=== PATIENT | female | born 1995 | race African-American/Black ===

== ENCOUNTER 2019-07-13 12:46 | Emergency (ER) | payer OTHER, SELFPAY ==
[2019-07-13 13:06] VITALS: BP 140/80; PULSE 80; RESP 16; TEMP 37.1; O2SAT 100
--- NOTE | 2019-07-13 13:11 | ED.EYEPROB ---
HPI - Eye Problem General Chief complaint: Eye Problems Stated complaint: left eye problems Time Seen by Provider: 07/13/19 13:11 Source: patient and RN notes reviewed History of Present Illness HPI Narrative: Patient is a 23-year-old female that presents the urgent care with complaints of left eye watering and mild itchiness/pain. Patient states denies any recent trauma or injury to the eye. Patient has not used anything [id number]. Patient denies of any matting or swelling. No other acute complaints. No acute distress noted. Patient read the plan of care. Related Data Allergies Allergy/AdvReac Type Severity Reaction Status Date / Time No Known Allergies Allergy Verified 07/13/19 13:12 Review of Systems Review of Systems: Narrative: CONSTITUTIONAL: Denies fever, chills, or sweats. EYES: Reports of left eye itchiness, drainage ENT: Denies rhinorrhea, congestion, sore throat, or otalgia. CARDIOVASCULAR: Denies chest pain, palpitations, or edema. RESPIRATORY: Denies cough or dyspnea. GASTROINTESTINAL: Denies abdominal pain, nausea, vomiting, or diarrhea. GENITOURINARY: Denies dysuria or hematuria. SKIN: Denies rash or itching. MUSCULOSKELETAL: Denies back pain, joint pain, or myalgia. NEUROLOGIC: Denies headache, numbness, or weakness. All other systems reviewed are negative, except as documented in HPI. FOR[facility]LY [facility], [facility] Past Medical History Medical History (Updated 07/13/19 @ 13:27 by LOLA Ye) Anxiety and depression Social History Social History Gender identity (if verbalized by the patient): Female Comments At the time of my signature, I reviewed and agree with the nursing past medical, surgical, social, and family history. There is no relevant family history pertinent to the patient complaint. Exam Narrative: Exam Narrative: GENERAL: This is a well-nourished, well-developed patient, in no apparent distress. HEAD: normocephalic, atraumatic. EYES: PERRL. Sclera clear/white. Vision is grossly intact. Mild injected left conjunctive a with clear drainage. No obvious injury, trauma, hordeolum EARS: External ears normal NOSE: External nose normal with no obvious nasal discharge THROAT: Mucous membranes moist NECK: Neck supple SKIN: warm, intact with no suspicious lesions or rash, good texture and turgor. NEURO: awake, alert, and oriented to person, place and time. There were no obvious focal neurologic abnormalities. EXTREMITIES: No clubbing, cyanosis, or edema. Course Vital Signs Vital signs: Vital Signs Temperature 98.8 F 07/13/19 13:06 Pulse Rate 80 07/13/19 13:06 Respiratory Rate 16 07/13/19 13:06 Blood Pressure 140/80 07/13/19 13:06 Pulse Oximetry 100 07/13/19 13:06 Temperature 98.8 F 07/13/19 13:06 Pulse Rate 80 07/13/19 13:06 Respiratory Rate 16 07/13/19 13:06 Blood Pressure 140/80 07/13/19 13:06 Pulse Oximetry 100 07/13/19 13:06 Reviewed MDM - Eye Problem MDM Narrative Medical decision making narrative: Advised the patient to use eyedrops to the left eye as directed. May use warm compress for comfort. May use Claritin, Benadryl, or Zyrtec for itchiness and watery eyes. Follow-up with PCP within 2 to 5 days or for worsening symptoms or failure to improve. Differential Diagnosis Differential diagnosis: Likely corneal abrasion, conjunctivitis, periorbital cellulitis and subconjunctival hemorrhage Critical Care Time Critical Care Time Critical Care Time: No Discharge Plan Discharge Clinical Impression: Allergic conjunctivitis Qualifiers: Laterality: left Qualified Code(s): H10.12 - Acute atopic conjunctivitis, left eye Patient Disposition: Home, Self-Care Condition: Stable Instructions: Antibiotic Form, Conjunctivitis (ED) Additional Instructions: Advised the patient to use eyedrops to the left eye as directed. May use warm compress for comfort. May use Claritin, Benadryl, or Zyr
== END 2019-07-13 13:30 | disposition home or self-care (01) ==
PROVIDERS: Emergency Provider Nurse Practitioner Family; PCP Emergency Medicine
DX: H10.12 Acute atopic conjunctivitis, left eye (principal)
CPT/HCPCS: 99213; G0463

== ENCOUNTER → 2020-03-19 14:12 | Outpatient (CLI) | payer OTHER, SELFPAY ==
--- NOTE | ~2020-03-19 | XR_ITS ---
EXAMINATION: XR chest 2V 03/19/2020 14:28 INDICATION: Shortness of breath. PROCEDURE: PA and lateral views of the chest COMPARISON: No prior studies for comparison. FINDINGS: The lungs are clear. The cardiomediastinal silhouette is within normal limits. There are no pleural effusions. There is no pneumothorax suspected. IMPRESSION: 1: NO ACUTE CARDIOPULMONARY DISEASE. Reviewed, dictated and finalized at location A. NDHAND
== END ==
PROVIDERS: PCP Emergency Medicine; Visit Provider Emergency Medicine
DX: U07.1 COVID-19 (principal); R06.09 Other forms of dyspnea
CPT/HCPCS: 71046

== ENCOUNTER 2020-05-21 17:43 | Outpatient (CLI) | payer OTHER, SELFPAY ==
--- NOTE | ~2020-05-21 | MM_ITS ---
EXAMINATION: MM screening meseret BI w ita HISTORY: Screening mammogram TECHNIQUE: Craniocaudal and mediolateral oblique 3-D tomosynthesis images were obtained and synthetic 2-D images were generated. CAD analysis was submitted and interpreted. COMPARISON: No prior mammogram is available for comparison at this institution. BREAST PARENCHYMAL COMPOSITION: There are scattered areas of fibroglandular density. FINDINGS: There is no evidence of suspicious mass, calcification, or architectural distortion to sugg est malignancy in either breast. There has been no suspicious interval change. IMPRESSION: 1. No mammographic evidence of malignancy. 2. Recommend routine screening mammography in one year. BI-RADS Category 1: Negative Reviewed, dictated and finalized at location A. AL SURGEON
== END 2020-05-21 17:44 | disposition home or self-care (01) ==
PROVIDERS: PCP Emergency Medicine; Visit Provider Physician Assistant
DX: Z12.31 Encounter for screening mammogram for malignant neoplasm of breast (principal)
CPT/HCPCS: 77063; 77067

== ENCOUNTER 2020-07-16 22:03 | Emergency (ER) | payer OTHER, SELFPAY ==
[2020-07-16 22:05] VITALS: BP 143/96; PULSE 100; RESP 18; TEMP 36.5; O2SAT 100
[2020-07-16] MEDS: ONDANSETRON INJ 4 MG/2 ML VIAL (22:26)
[2020-07-16] MEDS: DEXTROSE 5%/LACTATED RINGERS 1,000 ML 999 ML (22:26)
[2020-07-16 23:11] LABS: Basophils Absolute Auto 0.1 K/mm3 (0.0-0.1); Basophils Percent Auto 0.5 % (0.2-1.2); Eosinophils Absolute Auto 0.1 K/mm3 (0-0.3); Eosinophils Percent Auto 0.7 % (0-4.4); Hematocrit 45.7 % (37.0-47.0); Hemoglobin 15.2 g/dL (12.0-15.0); Immature Granulocyte Absolute 0.02 K/mm3 (0.00-0.031); Immature Granulocyte Percent A 0.2 % (0-0.5); Lymphocytes Absolute Auto 3.09 K/mm3 (0.9-3.2); Lymphocytes Percent Auto 26.6 % (18.3-44.2); Mean Corpuscular HGB Conc 33.3 g/dl (32-36); Mean Corpuscular Hemoglobin 28.4 pg (26-34); Mean Corpuscular Volume 85.4 fl (80-100); Mean Platelet Volume 11.2 fl (7.4-10.4); Monocytes Absolute Auto 0.8 K/mm3 (0.1-0.6); Monocytes Percent Auto 6.6 % (2.6-8.5); Neutrophils Absolute Auto 7.6 K/mm3 (1.3-6.7); Neutrophils Percent Auto 65.4 % (45.5-73.1); Platelet Count Result 275 k/mm3 (150-375); Red Blood Count 5.35 M/mm3 (4.2-5.4); Red Cell Distribution Width 12.8 % (11.5-14.5); White Blood Count 11.6 K/mm3 (4.5-10.0)
[2020-07-16 23:21] LABS: Potassium 3.6 mmol/L (3.4-5.0)
[2020-07-16 23:33] LABS: Alanine Aminotransferase 17 U/L (4-35); Albumin Level 4.6 g/dL (3.5-5.1); Alkaline Phosphatase 68 U/L (38-126); Anion Gap 15 mmol/L (8-16); Aspartate Amino Transferase 28 U/L (14-36); Bilirubin,Total 0.8 mg/dL (0.2-1.3); Blood Urea Nitrogen 17 mg/dL (7-17); Carbon Dioxide 18 mmol/L (22-30); Chloride 105 mmol/L (98-107); Estimated CRCL calculation 119 ml/min; Estimated Glomerular Filt Rate > 60; Glucose 85 mg/dL (65-105); Sodium 138 mmol/L (137-145)
[2020-07-17 00:35] LABS: Add Urine Microscopic? YES; Appearance Urine Cloudy (Clear); Bacteria Urine Trace /hpf; Bilirubin Urine Negative (Negative); Blood Urine Negative (Negative); Color Urine Amber (Yellow); Glucose Urine UA 3+ mg/dL (Negative); Ketones Urine 2+ mg/dL (Negative); Leukocyte Esterase Ur Negative LEU/UL (Negative); Mucus Urine Heavy /lpf; Nitrate Urine Negative (Negative); Protein Urine 2+ mg/dL (Negative); Squamous Epithelial Cell Urine Moderate /hpf (Few)
[2020-07-17 00:36] LABS: Specific Grav Ur 1.032 (1.001-1.035)
--- NOTE | 2020-07-17 00:44 | ED.GENADULT ---
HPI - General Adult General Chief complaint: Nausea/Vomiting/Diarrhea Stated complaint: nausea and emesis Time Seen by Provider: 07/16/20 22:24 Source: patient and family Mode of arrival: ambulatory Limitations: no limitations History of Present Illness HPI narrative: 24-year-old 1 para 0 about 9 weeks of gestation here with complaints of nausea vomiting reflux problems for past 1 week unable to keep any fluids down. She denies any abdominal pain. Denies any urinary symptoms. No history of vaginal bleeding or discharge. Onset (ago): week(s) (1) Severity: moderate Associated symptoms: denies other symptoms Related Data Home Medications Medication Instructions Recorded Confirmed folic acid 07/16/20 multivitamin [Daily-Sindy] tablet 07/16/20 progesterone micronized mg 07/16/20 scopolamine base 07/16/20 Allergies Allergy/AdvReac Type Severity Reaction Status Date / Time No Known Allergies Allergy Verified 07/16/20 22:08 Review of Systems Review of Systems: All systems reviewed & are unremarkable except as noted in HPI and below Constitutional: Constitutional: Reports no additional constitutional complaints Eyes: Eyes: Reports no additional eye complaints ENT: Reports system reviewed and no additional complaints, except as documented Cardiovascular: Cardiovascular: Reports no additional cardiovascular complaints Respiratory: Respiratory: Reports no additional respiratory complaints Gastrointestinal: Gastrointestinal: Reports as per HPI Genitourinary: Genitourinary: Reports no additional female genitourinary complaints Musculoskeletal: Musculoskeletal: Reports no additional musculoskeletal complaints Integumentary/Breasts: Skin/Breast: Reports system reviewed and no additional complaints, except as docu Neurologic: Reports system reviewed and no additional complaints, except as documented PMFSH Past Medical History Medical History Anxiety and depression Social History Social History Gender identity (if verbalized by the patient): Female Sexual Orientation (if Verbalized by the Patient): Straight or Heterosexual Exam Narrative: Exam Narrative: GENERAL: Well-appearing, well-nourished, and in no acute distress. HEAD: Normocephalic, atraumatic. EYES: PERRLA and EOMI. ENT: Nares clear, no rhinorrhea or epistaxis. Mucous membranes moist. NECK: Supple. CHEST: Clear to auscultation. No respiratory distress. HEART: Regular rate and rhythm. No murmur heard. Normal peripheral pulses. ABDOMEN: Soft, nontender, nondistended, normal active bowel sounds. EXTREMITIES: Normal range of motion. No edema. SKIN: Warm, dry, no rash. NEURO: No focal deficits. Alert and oriented x3. PSYCH: Normal mood and affect. Course Course Emergency Course: Patient feeling much better after IV fluids and Zofran. Discussed lab work with the patient. Advised her to drink plenty of fluids Vital Signs Vital signs: Vital Signs Temperature 36.5 C 07/16/20 22:05 Pulse Rate 100 07/16/20 22:05 Respiratory Rate 18 07/16/20 22:05 Blood Pressure 143/96 H 07/16/20 22:05 Pulse Oximetry 100 07/16/20 22:05 Temperature 36.5 C 07/16/20 22:05 Pulse Rate 100 07/16/20 22:05 Respiratory Rate 18 07/16/20 22:05 Blood Pressure 143/96 H 07/16/20 22:05 Pulse Oximetry 100 07/16/20 22:05 Medical Decision Making Vital Signs Vital Signs: Vital Signs Temperature 36.5 C 07/16/20 22:05 Pulse Rate 100 07/16/20 22:05 Respiratory Rate 18 07/16/20 22:05 Blood Pressure 143/96 H 07/16/20 22:05 Pulse Oximetry 100 07/16/20 22:05 Temperature 36.5 C 07/16/20 22:05 Pulse Rate 100 07/16/20 22:05 Respiratory Rate 18 07/16/20 22:05 Blood Pressure 143/96 H 07/16/20 22:05 Pulse Oximetry 100 07/16/20 22:05 Lab Data Result diagrams: 07/16/20 23:05 05
[2020-07-17 00:55] VITALS: BP 131/84; PULSE 86; RESP 16; TEMP 36.3; O2SAT 100
== END 2020-07-17 00:56 | disposition home or self-care (01) ==
PROVIDERS: Emergency Provider Family Medicine; PCP Emergency Medicine
DX: O21.0 Mild hyperemesis gravidarum (principal); Z3A.09 9 weeks gestation of pregnancy
CPT/HCPCS: 36415; 80053; 81001; 85025; 87086; 96361; 96374; 99284; J2405; J7121

== ENCOUNTER 2020-07-21 16:23 | Outpatient (CLI) | payer OTHER, SELFPAY ==
--- NOTE | ~2020-07-21 | US_ITS ---
EXAMINATION: US OB <= 14 weeks fetus EXAM DATE: 07/21/2020 17:07 INDICATION: Routine care. 1st trimester. TECHNIQUE: Pelvic obstetrical transabdominal sonogram was performed by a technologist. There are mu ltiple grayscale and Doppler images available for interpretation. There are no earlier studies of th is gestation for comparison. FINDINGS: Uterus measures 9.5 x 8.3 x 6.8 cm. There is intrauterine gestation sac. pole with heart rate confirmed at 169 beats per minute. The 3.2 cm crown-rump length corresponds to estimated gestational age by ultrasound of 10 weeks 0 days, estimated date of confinement 02/16/2021. Yolk sac is identified. There is no sonographic evidence of subchorionic hemorrhage. The ovaries not speci fically identified. IMPRESSION: Live intrauterine gestation, age by ultrasound 10 weeks 0 days. Reviewed, dictated and finalized at location A.
== END 2020-07-21 16:24 | disposition home or self-care (01) ==
PROVIDERS: PCP Emergency Medicine; Visit Provider Physician Assistant
DX: Z34.90 Encounter for supervision of normal pregnancy, unspecified, unspecified trimester (principal); Z3A.10 10 weeks gestation of pregnancy
CPT/HCPCS: 76801

== ENCOUNTER 2020-07-23 20:07 | Observation (INO) | payer OTHER, SELFPAY ==
[2020-07-23 20:11] VITALS: BP 119/97; PULSE 94; RESP 20; TEMP 36.3; O2SAT 100
--- NOTE | 2020-07-23 21:34 | ED.NAVMDI ---
HPI - Nausea/Vomiting/Diarrhea General Chief complaint: Nausea/Vomiting/Diarrhea Stated complaint: N/V Time Seen by Provider: 07/23/20 21:11 Source: patient Mode of arrival: ambulatory Limitations: no limitations History of Present Illness HPI Narrative: This is a 24 year old , about 10 weeks that presents to the ER for nausea and vomiting. Reports ongoing over the last couple of weeks. She had been taking Vitamin B6 and Unisom which was working initially, but is no longer helpful. Denies fever, dysuria, or vaginal bleeding. Related Data Home Medications Medication Instructions Recorded Confirmed folic acid 07/16/20 multivitamin [Daily-Sindy] tablet 07/16/20 progesterone micronized mg 07/16/20 scopolamine base 07/16/20 Allergies Allergy/AdvReac Type Severity Reaction Status Date / Time No Known Allergies Allergy Verified 07/23/20 21:21 Review of Systems Review of Systems: Narrative: CONSTITUTIONAL: Denies fever GASTROINTESTINAL: Reports nausea and vomiting. Denies abdominal pain GENITOURINARY: Denies dysuria All systems reviewed & are unremarkable except as noted in HPI and below PMFSH Past Medical History Medical History Anxiety and depression Social History Social History (Updated 07/23/20 @ 21:38 by Risa Avitia PA-C) Substance use: never Gender identity (if verbalized by the patient): Female Sexual Orientation (if Verbalized by the Patient): Straight or Heterosexual Exam Narrative: Exam Narrative: GENERAL: Well-appearing, well-nourished, and in no acute distress. HEAD: Normocephalic, atraumatic. EYES: EOMI. CHEST: Clear to auscultation. No respiratory distress. No wheezes rales or rhonchi HEART: Regular rate and rhythm. No murmur heard. Normal peripheral pulses. ABDOMEN: Soft, nontender, nondistended, normal active bowel sounds. EXTREMITIES: Normal range of motion. No edema. SKIN: Warm, dry, no rash. NEURO: No focal deficits. Alert and oriented x3. PSYCH: Normal mood and affect Course Consultations Consultation #1: Spoke with Dr. Torres about patient and work-up who is environmental science professor for Dr. Dahl. Patient will be admitted for further hydration and antiemetics. Date: 07/24/20 Time: 01:24 Vital Signs Vital signs: Vital Signs Temperature 97.4 F L 07/23/20 20:11 Pulse Rate 94 07/23/20 20:11 Respiratory Rate 20 07/23/20 20:11 Blood Pressure 119/97 H 07/23/20 20:11 Pulse Oximetry 100 07/23/20 20:11 Temperature 97.4 F L 07/23/20 20:11 Pulse Rate 98 07/23/20 23:48 Respiratory Rate 18 07/23/20 23:48 Blood Pressure 123/82 07/23/20 23:48 Pulse Oximetry 100 07/23/20 23:48 MDM - Nausea/Vomiting/Diarrhea MDM Narrative Medical decision making narrative: Patient presents the emergency department for nausea and vomiting, 10 weeks . She is afebrile and nontoxic-appearing. Vitals are stable. CBC and metabolic panel without concerning findings. Lipase is normal. UA with evidence of dehydration. Patient had an ultrasound 3 days ago which showed a live IUP. Her OB is Loni Martines PA-C with [facility]. Patient was hydrated while in the ED and given multiple doses of antiemetics with little relief. Spoke with Dr. Torres about patient and work-up who is environmental science professor for Dr. aDhl. Patient will be admitted for further hydration and antiemetics. Lab Data Attestation: I reviewed the patient's lab results. Result diagrams: 07/23/20 21:58 07/23/20 23:40 Labs: Lab Results 07/23/20 07/23/20 07/23/20 Range/Units 21:58 23:06 23:40 WBC 8.6 (4.5-10.0) K/mm3 RBC 5.23 (4.2-5.4) M/mm3 Hgb 15.0 (12.0-15.0) g/dL Hct 44.8 (37.0-47.0) % MCV 85.7 (80-100) fl MCH 28.7 (26-34) pg MCHC 33.5 (32-36) g/dl RDW 12.6 (11.5-14.5) % Plt Count 220 (150-375) k/mm3 MPV 11.8 H (7.4-10.4) fl Immature Gran % (Auto) 0.2 (0-0.5) %
[2020-07-23 22:06] LABS: Basophils Absolute Auto 0.1 K/mm3 (0.0-0.1); Basophils Percent Auto 0.6 % (0.2-1.2); Eosinophils Absolute Auto 0.1 K/mm3 (0-0.3); Eosinophils Percent Auto 0.8 % (0-4.4); Hematocrit 44.8 % (37.0-47.0); Immature Granulocyte Absolute 0.02 K/mm3 (0.00-0.031); Immature Granulocyte Percent A 0.2 % (0-0.5); Lymphocytes Absolute Auto 2.45 K/mm3 (0.9-3.2); Lymphocytes Percent Auto 28.5 % (18.3-44.2); Mean Corpuscular HGB Conc 33.5 g/dl (32-36); Mean Corpuscular Hemoglobin 28.7 pg (26-34); Mean Corpuscular Volume 85.7 fl (80-100); Mean Platelet Volume 11.8 fl (7.4-10.4); Monocytes Absolute Auto 0.5 K/mm3 (0.1-0.6); Monocytes Percent Auto 5.2 % (2.6-8.5); Neutrophils Absolute Auto 5.6 K/mm3 (1.3-6.7); Neutrophils Percent Auto 64.7 % (45.5-73.1); Platelet Count Result 220 k/mm3 (150-375); Red Blood Count 5.23 M/mm3 (4.2-5.4); Red Cell Distribution Width 12.6 % (11.5-14.5); White Blood Count 8.6 K/mm3 (4.5-10.0)
[2020-07-23] MEDS: SODIUM CHLORIDE 0.9% IV 1,000 ML 999 ML IV CONT ×2 (22:10→23:43)
[2020-07-23] MEDS: METOCLOPRAMIDE HCL INJ 10 MG/2 ML VIAL IV PUSH (22:11)
[2020-07-23] MEDS: diphenhydrAMINE HCl INJ 50 MG/ML VIAL 25 MG IV PUSH (22:13)
[2020-07-23 23:26] LABS: Add Urine Microscopic? YES; Appearance Urine Cloudy (Clear); Bacteria Urine Trace /hpf; Bilirubin Urine Negative (Negative); Blood Urine Negative (Negative); Color Urine Amber (Yellow); Glucose Urine UA Negative (Negative); Ketones Urine 2+ mg/dL (Negative); Leukocyte Esterase Ur Negative LEU/UL (Negative); Mucus Urine Heavy /lpf; Nitrate Urine Negative (Negative); Protein Urine 2+ mg/dL (Negative); RBC Urine 0-2 /hpf (0-2); Squamous Epithelial Cell Urine Few /hpf (Few)
[2020-07-23 23:27] LABS: Specific Grav Ur 1.042 (1.001-1.035)
[2020-07-23] MEDS: FAMOTIDINE 20 MG/2 ML VIAL IV PUSH (23:43)
[2020-07-23 23:48] VITALS: BP 123/82; PULSE 98; RESP 18; O2SAT 100
[2020-07-24 00:03] LABS: Alanine Aminotransferase 19 U/L (4-35); Albumin Level 4.1 g/dL (3.5-5.1); Alkaline Phosphatase 62 U/L (38-126); Anion Gap 9 mmol/L (8-16); Aspartate Amino Transferase 22 U/L (14-36); Bilirubin,Total 0.5 mg/dL (0.2-1.3); Blood Urea Nitrogen 16 mg/dL (7-17); Calcium 9.7 mg/dL (8.4-10.2); Carbon Dioxide 22 mmol/L (22-30); Chloride 107 mmol/L (98-107); Estimated CRCL calculation 123 ml/min; Estimated Glomerular Filt Rate > 60; Glucose 70 mg/dL (65-105); Lipase 202 U/L (23-300); Potassium 3.8 mmol/L (3.4-5.0); Sodium 138 mmol/L (137-145)
[2020-07-24] MEDS: ONDANSETRON INJ 4 MG/2 ML VIAL IV PUSH ×3 (00:47→11:01)
[2020-07-24 02:03] VITALS: BP 118/72; PULSE 94; RESP 16; O2SAT 100
--- NOTE | 2020-07-24 02:45 | PC.NURSE ---
Addendum entered by Marilee Graf RN 07/24/20 05:49: aware of pt gestational age. Original Note: rn attempted to dopple fht. rn unsuccessful. aware.
[2020-07-24 02:46] VITALS: BP 136/70; PULSE 41
[2020-07-24 03:00] VITALS: BMI 28.2
[2020-07-24 03:01] VITALS: BP 134/79; PULSE 63
[2020-07-24 03:16] VITALS: BP 126/68; PULSE 85
[2020-07-24] MEDS: DEXTROSE 5%/0.45% SOD CHL 1,000 ML 125 ML IV CONT (03:32)
--- NOTE | 2020-07-24 05:20 | OBADM ---
This patient, Delphine Workman, admitted to the OB room OB Post 115 for observation. Patient/family oriented to hospital policies and general routines including ID bracelet, bed and alarms, visiting hours, pain management, procedures, bathroom and other care routines, personal items, smoking policy, room service/diet, and visiting hours. Patient/Family are encouraged to report perceived risks to care and to ask questions if they do not understand what they are told or what they should do.
[2020-07-24 09:06] VITALS: BP 135/72; PULSE 87; RESP 16; TEMP 36.4
[2020-07-24] MEDS: FAMOTIDINE 20 MG/2 ML VIAL IV PUSH (11:01)
--- NOTE | 2020-07-24 11:02 | PM.OBTRLD ---
OB - Triage/Final Diagnosis Visit Information Comments/Additional reasons for admission: I have assessed the risk for this patient, Delphine Workman, and determined that she would benefit from observation care. Evaluation Laboratory results: Laboratory Tests 07/23/20 07/23/20 07/23/20 21:58 23:06 23:40 WBC 8.6 RBC 5.23 Hgb 15.0 Hct 44.8 MCV 85.7 MCH 28.7 MCHC 33.5 RDW 12.6 Plt Count 220 MPV 11.8 H Immature Gran % (Auto) 0.2 Neut % (Auto) 64.7 Lymph % (Auto) 28.5 [place] % (Auto) 5.2 Eos % (Auto) 0.8 Baso % (Auto) 0.6 Lymph # (Auto) 2.45 [place] # (Auto) 0.5 Eos # (Auto) 0.1 Baso # (Auto) 0.1 Abs Immat Gran (auto) 0.02 Absolute Neuts (auto) 5.6 Absolute Nucleated RBC 0.0 Nucleated RBC % 0.0 Sodium 138 Potassium 3.8 Chloride 107 Carbon Dioxide 22 Anion Gap 9 BUN 16 Creatinine 0.70 Estim Creat Clear Calc 123 Estimated GFR > 60 Glucose 70 Calcium 9.7 Total Bilirubin 0.5 AST 22 ALT 19 Alkaline Phosphatase 62 Total Protein 8.0 Albumin 4.1 Lipase 202 Urine Color [place] Urine Appearance Cloudy H Urine pH 5.0 Ur Specific [place] 1.042 H Urine Protein 2+ H Urine Glucose (UA) Negative Urine Ketones 2+ H Ur Blood (Man) Negative Urine Nitrate Negative Urine Bilirubin Negative Urine Urobilinogen 4.0 H Leukocyte Esterase Rfl Negative Urine RBC 0-2 Urine WBC 4-6 H Ur Squamous Epith Cells Few Urine Bacteria Trace Urine Mucus Heavy H Vital signs: Vital Signs - 24 hr 07/23/20 20:11 07/23/20 23:48 07/24/20 02:03 Temperature 97.4 F L Pulse Rate 94 98 94 Respiratory Rate 20 18 16 Blood Pressure 119/97 H 123/82 118/72 Pulse Oximetry 100 100 100 07/24/20 02:46 07/24/20 03:01 07/24/20 03:16 Temperature Pulse Rate 41 L 63 85 Respiratory Rate Blood Pressure 136/70 134/79 126/68 Pulse Oximetry 07/24/20 09:06 Temperature 97.6 F Pulse Rate 87 Respiratory Rate 16 Blood Pressure 135/72 Pulse Oximetry Final Diagnosis (1) Hyperemesis gravidarum: Code(s): O21.0 - Mild hyperemesis gravidarum Status: Acute
--- NOTE | 2020-07-24 13:16 | PC.NURSE ---
1305- Discharge instructions given to patient. Patient very quiet, states she is mildly nauseated but has not vomited, states she wants to go home. Asked patient multiple times if she is feeling well enough to go home. Patient states that yes she wants to go home. Informed patient of when to return to hospital and that prescriptions will be ready for her at pharmacy.
--- NOTE | 2020-07-24 13:18 | PC.NURSE ---
1237- Spoke with Dr. Dahl, patient states she is mildly nauseated but would like to go home. orders to discharge to home. He has called in prescriptions to pharmacy for patient to pickup upon discharge.
== END 2020-07-24 13:15 | disposition home or self-care (01) ==
LOC: ANHED 07-24 01:24 → ANHOBPP 07-24 10:39
PROVIDERS: Physician Assistant; Admitting Provider Obstetrics & Gynecology; Emergency Provider Emergency Medicine; PCP Emergency Medicine; Visit Provider Obstetrics & Gynecology
DX: O21.0 Mild hyperemesis gravidarum (principal); Z3A.10 10 weeks gestation of pregnancy
CPT/HCPCS: 36415; 80053; 81001; 83690; 85025; 96361; 96365; 96374; 96375; 96376; 99285; G0378; J0131; J1200; J2405; J2765; J7030

== ENCOUNTER 2020-08-06 22:50 | Emergency (ER) | payer OTHER, SELFPAY ==
[2020-08-06 22:51] VITALS: BP 119/78; PULSE 105; RESP 18; TEMP 35.9; O2SAT 100
--- NOTE | 2020-08-06 23:20 | ED.FEMALEGU ---
HPI - Female Genitourinary General Chief complaint: Nausea/Vomiting/Diarrhea Stated complaint: hyperemesis, Time Seen by Provider: 08/06/20 23:12 Source: patient Mode of arrival: ambulatory Limitations: no limitations History of Present Illness HPI Narrative: Patient is a 24-year-old female complaining of nausea and vomiting for the past few days. Patient describes the vomitus as nonbilious nonbloody. Patient states that she is 12 weeks and has had problems with nausea vomiting since the beginning of her . Patient denies any abdominal pain, vaginal bleeding or vaginal discharge. Patient states that she has had care. Related Data Home Medications Medication Instructions Recorded Confirmed folic acid 1 mg PO DAILY 07/16/20 07/24/20 multivitamin [Daily-Sindy] 1 tablet PO DAILY 07/16/20 07/24/20 progesterone micronized 200 mg PO DAILY 07/16/20 07/24/20 scopolamine base 07/16/20 Allergies Allergy/AdvReac Type Severity Reaction Status Date / Time No Known Allergies Allergy Verified 08/06/20 23:12 Review of Systems Review of Systems: All systems reviewed & are unremarkable except as noted in HPI and below Constitutional: Constitutional: Denies body ache(s), Denies chills, Denies excessive sweating, Denies fatigue, Denies fever(s), Denies headache(s), Denies lethargy, Denies malaise, Denies weakness and Denies weight loss Eyes: Eyes: Denies blurry vision, Denies change in vision and Denies loss of vision ENT: Denies dizziness, Denies ear discharge, Denies headache(s), Denies lip swelling, Denies epistaxis, Denies nasal congestion, Denies neck pain, Denies throat swelling and Denies tongue swelling Cardiovascular: Cardiovascular: Denies chest pain, Denies chest pain at rest, Denies chest pain with activity, Denies diaphoresis, Denies rapid heart rate, Denies edema, Denies irregular heart rhythm, Denies lightheadedness, Denies palpitations, Denies dyspnea and Denies dyspnea on exertion Respiratory: Respiratory: Denies chest congestion, Denies cough, Denies hemoptysis, Denies dyspnea and Denies dyspnea on exertion Gastrointestinal: Gastrointestinal: Denies abdominal pain, Denies melena, Denies hematochezia, Denies diarrhea and Denies hematemesis Musculoskeletal: Musculoskeletal: Denies abnormal gait, Denies deformity, Denies joint swelling, Denies limited range of motion, Denies neck pain and Denies numbness Neurologic: Denies Abnormal speech present, Denies abnormal gait, Denies confusion, Denies dizziness, Denies headache(s), Denies focal weakness, Denies loss of vision, Denies numbness, Denies Other visual disturbances, Denies Sensory deficit (Neuro) and Denies weakness Psychiatric: Psychiatric: Denies confusion, Denies depression, Denies auditory hallucinations, Denies homicidal ideation and Denies suicidal ideation Endocrine: Endocrine: Denies cold intolerance, Denies excessive sweating, Denies fatigue, Denies heat intolerance and Denies palpitations Hematologic/Lymphatic: Hematologic/Lymphatic: Denies easy bleeding and Denies easy bruising Allergic/Immunologic: Allergic/Immunologic: Denies lip swelling, Denies throat swelling and Denies tongue swelling PMF Past Medical History Medical History Anxiety and depression Social History Social History (Updated 07/23/20 @ 21:38 by Risa Avitia PA-C) Substance use: never Gender identity (if verbalized by the patient): Female Comments Past medical history: None Family history: Noncontributory Social history: Non-smoker no EtOH or drug use Exam Const: General: cooperative, healthy appearing, comfortable, no acute distress, well developed, alert and awake; No confusion Orientation/consciousness: oriented to person, oriented to place, oriented to time, patient oriented x3 and No confusion Limitations: no limitations HENMT: Head: normal to inspection, normocephalic and atra
[2020-08-06] MEDS: SODIUM CHLORIDE 0.9% IV 1,000 ML 999 ML IV CONT (23:51)
[2020-08-06 23:53] LABS: Basophils Percent Auto 0.4 % (0.2-1.2); Eosinophils Absolute Auto 0.1 K/mm3 (0-0.3); Hematocrit 42.7 % (37.0-47.0); Hemoglobin 14.1 g/dL (12.0-15.0); Immature Granulocyte Absolute 0.01 K/mm3 (0.00-0.031); Immature Granulocyte Percent A 0.1 % (0-0.5); Lymphocytes Absolute Auto 2.49 K/mm3 (0.9-3.2); Lymphocytes Percent Auto 36.4 % (18.3-44.2); Mean Corpuscular Hemoglobin 28.3 pg (26-34); Mean Corpuscular Volume 85.6 fl (80-100); Mean Platelet Volume 12.3 fl (7.4-10.4); Monocytes Absolute Auto 0.6 K/mm3 (0.1-0.6); Monocytes Percent Auto 8.2 % (2.6-8.5); Neutrophils Absolute Auto 3.7 K/mm3 (1.3-6.7); Neutrophils Percent Auto 53.9 % (45.5-73.1); Platelet Count Result 199 k/mm3 (150-375); Red Blood Count 4.99 M/mm3 (4.2-5.4); White Blood Count 6.9 K/mm3 (4.5-10.0)
[2020-08-07] MEDS: PROMETHAZINE HCL 25 MG/ML AMPUL 12.5 MG IV PUSH (00:14)
[2020-08-07 00:19] LABS: Alanine Aminotransferase 15 U/L (4-35); Alkaline Phosphatase 46 U/L (38-126); Anion Gap 11 mmol/L (8-16); Aspartate Amino Transferase 32 U/L (14-36); Bilirubin,Total 0.7 mg/dL (0.2-1.3); Blood Urea Nitrogen 13 mg/dL (7-17); Calcium 9.6 mg/dL (8.4-10.2); Carbon Dioxide 20 mmol/L (22-30); Chloride 104 mmol/L (98-107); Estimated Glomerular Filt Rate > 60; Glucose 74 mg/dL (65-105); Lipase 242 U/L (23-300); Sodium 135 mmol/L (137-145)
[2020-08-07 01:22] LABS: Add Urine Microscopic? YES; Appearance Urine Clear (Clear); Bacteria Urine Trace /hpf; Bilirubin Urine Negative (Negative); Blood Urine Negative (Negative); Color Urine Amber (Yellow); Glucose Urine UA Negative (Negative); Ketones Urine 2+ mg/dL (Negative); Leukocyte Esterase Ur Negative LEU/UL (Negative); Mucus Urine Heavy /lpf; Nitrate Urine Negative (Negative); Protein Urine 2+ mg/dL (Negative); RBC Urine 0-2 /hpf (0-2); Squamous Epithelial Cell Urine Moderate /hpf (Few); WBC Urine 0-3 /hpf
[2020-08-07 01:23] LABS: Specific Grav Ur 1.032 (1.001-1.035)
[2020-08-07 01:34] VITALS: BP 128/70; PULSE 88; RESP 16; O2SAT 100
[2020-08-07 01:56] VITALS: BP 114/81; PULSE 87; RESP 16; O2SAT 100
== END 2020-08-07 01:56 | disposition home or self-care (01) ==
PROVIDERS: Emergency Provider Emergency Medicine; PCP Emergency Medicine
DX: O21.0 Mild hyperemesis gravidarum (principal); Z3A.12 12 weeks gestation of pregnancy
CPT/HCPCS: 36415; 80053; 81001; 83690; 84702; 85025; 96361; 96374; 99284; J2550; J7030

== ENCOUNTER → 2020-10-17 00:16 | Outpatient (CLI) | payer OTHER, SELFPAY ==
[2020-10-17 21:51] LABS: SARS-CoV-2 RNA PCR Negative
== END ==
PROVIDERS: PCP Emergency Medicine; Visit Provider Emergency Medicine
DX: R68.89 Other general symptoms and signs (principal); Z20.822 Contact with and (suspected) exposure to COVID-19
CPT/HCPCS: C9803; U0003; U0005

== ENCOUNTER 2021-08-31 12:18 | Emergency (ER) | payer OTHER, SELFPAY ==
[2021-08-31 12:30] VITALS: BP 147/88; PULSE 93; RESP 18; TEMP 36.2; O2SAT 97
--- NOTE | 2021-08-31 12:39 | ED.URI ---
HPI - URI/Sore Throat General Chief Complaint: Upper Respiratory Infection Stated Complaint: Sore throat,Ear Pain Time Seen by Provider: 08/31/21 12:39 Source: patient and RN notes reviewed Mode of arrival: ambulatory Limitations: no limitations History of Present Illness HPI Narrative: 26-year-old female presents to the [facility] with complaints of a sore throat and ear pain. Patient has a history of seasonal allergies, has not been taking her Claritin like she should. Patient states some of her symptoms started about 3 weeks ago and lasted 5 days then returned a couple of days later with pain in the right ear and sore throat. Has taken an [id number] product, unsure what it was. Denies fevers, chest pain, abdominal pain. No nausea vomiting or diarrhea. Related Data Allergies Allergy/AdvReac Type Severity Reaction Status Date / Time No Known Allergies Allergy Verified 08/31/21 12:21 Review of Systems Review of Systems: All systems reviewed & are unremarkable except as noted in HPI and below Constitutional: Constitutional: Reports no additional constitutional complaints, Denies chills and Denies fever(s) Eyes: Eyes: Reports no additional eye complaints ENT: Reports as per HPI Cardiovascular: Cardiovascular: Reports no additional cardiovascular complaints Respiratory: Respiratory: Reports no additional respiratory complaints Gastrointestinal: Gastrointestinal: Reports no additional gastrointestinal complaints Musculoskeletal: Musculoskeletal: Reports no additional musculoskeletal complaints Integumentary/Breasts: Skin/Breast: Reports system reviewed and no additional complaints, except as docu Neurologic: Reports system reviewed and no additional complaints, except as documented Psychiatric: Psychiatric: Reports no additional psychiatric complaints Allergic/Immunologic: Allergic/Immunologic: Reports no additional allergic/immunologic complaints [facility] Past Medical History Medical History Anxiety and depression Social History Social History Substance use: never Gender identity (if verbalized by the patient): Female Sexual Orientation (if Verbalized by the Patient): Straight or Heterosexual Comments At the time of my signature, I reviewed and agree with the nursing past medical, surgical, social, and family history. There is no relevant family history pertinent to the patient complaint. Exam Const: General: healthy appearing, no acute distress and alert Nutritional Appearance: well nourished and obese Orientation/consciousness: patient oriented x3 Limitations: no limitations HENMT: Head: normal to inspection Ears: external ears normal, EAC's normal and TM abnormal bulging on the right, erythematous on the right and with fluid behind the TM on the left Throat: posterior oropharynx normal Eyes: General: appearance normal, both eyes and all related structures Pupils: Equal, round and reactive pupils present Neck: Neck: normal visual inspection, no lymphadenopathy and no meningeal signs Chest: Chest palpation & inspection: normal inspection of the chest Resp: Effort & Inspection: normal respiratory effort and no use of accessory muscles Auscultation: clear to auscultation bilaterally, no crackles, no rales, no rhonchi and no wheezes Cardio: Rate: regular rate Rhythm: regular rhythm GI: GI Palp: Yes Soft to palpation and No Tenderness to palpation present (GI) Back/Spine/Pelvis: Cervical Spine: normal cervical lordosis Thoracic/Lumbar Spine: thoracic and lumbar spine normal to inspection Skin: General skin exam: normal color Rashes: no rashes Wounds: no wounds Neuro: General: patient oriented x3, moves all extremities, no meningeal signs and no focal motor deficits Cranial nerves: Yes Equal, round and reactive pupils present Speech: normal speech Gait exam (Neuro): Normal gait pres
== END 2021-08-31 13:08 | disposition home or self-care (01) ==
PROVIDERS: Emergency Provider Nurse Practitioner; PCP Emergency Medicine
DX: H66.91 Otitis media, unspecified, right ear (principal); R09.82 Postnasal drip; H65.02 Acute serous otitis media, left ear
CPT/HCPCS: 87081; 87880; 99213; G0463

== ENCOUNTER 2021-11-23 11:32 | Emergency (ER) | payer BC, SELFPAY ==
[2021-11-23 11:44] VITALS: BP 153/103; PULSE 86; RESP 18; TEMP 36.3; O2SAT 100
--- NOTE | 2021-11-23 11:50 | ED.URI ---
HPI - URI/Sore Throat General Chief Complaint: Upper Respiratory Infection Stated Complaint: Sinus, Right side Face Pain, Headaches Time Seen by Provider: 11/23/21 11:50 History of Present Illness HPI Narrative: Delphine Workman is a 26 yo female with no known P and H2 comes to express care with right-sided facial pain that comes and goes that makes it difficult for her to talk to her and she has kind of rhythmic motions when she is in pain. Her is here with her and is reporting a lot of the symptoms she has are verifying the information as she does not interact in the normal rate when having this intermittent pain. She was treated for sinus infection a month ago with Augmentin and amoxicillin by her primary care physician. Very difficult to elicit information from her about the etiology of her symptoms Related Data Allergies Allergy/AdvReac Type Severity Reaction Status Date / Time No Known Allergies Allergy Verified 11/23/21 11:46 Review of Systems Review of Systems: CONSTITUTIONAL: Denies fever, chills, sweats. EYES: Denies visual changes, redness, discharge. ENT: Denies rhinorrhea, congestion, sore throat, otalgia. Left-sided facial pain CARDIOVASCULAR: Denies chest pain, palpitations, edema. RESPIRATORY: Denies dyspnea, wheezing, cough GASTROINTESTINAL: Denies abdominal pain, nausea, vomiting, diarrhea. GENITOURINARY: Denies dysuria, hematuria, abnormal discharge SKIN: Denies rash or itching. NEUROLOGIC: Denies numbness, or focal weakness. PSYCHIATRIC: Denies anxiety or depression. PMFSH Past Medical History Medical History Anxiety and depression Bipolar 1 disorder Schizophrenia Social History Social History Substance use: never Gender identity (if verbalized by the patient): Female Sexual Orientation (if Verbalized by the Patient): Straight or Heterosexual Comments At time of signature, I agree with nursing past medical, surgical, social and family history. There is no relevant family history pertinent to the presenting complaint. Exam Narrative: GENERAL: This is a well-nourished, well-developed patient, in mild distress. Patient has grimacing and did body movements when she states the pain is present in the right side of her face; states the pain comes on suddenly and goes up and down in intensity HEAD: normocephalic, atraumatic. EYES: PERRL. Sclera clear/white. Vision is grossly intact. EARS: External ears normal, auditory canals clear and without drainage, TMs normal without perforation. Hearing grossly intact. NOSE: External nose normal without nasal discharge, nares without redness, no rhinorrhea. THROAT: Mucous membranes moist, posterior pharynx mild erythema NECK: Neck supple, non-tender CARDIOVASCULAR: Regular rate and rhythm without murmurs, gallops, or rubs. RESPIRATORY: Clear to auscultation. Breath sounds equal bilaterally. No wheezes, rales, or rhonchi. GASTROINTESTINAL: Not done SKIN: warm, intact with no suspicious lesions or rash, good texture and turgor. NEURO: awake, alert, and oriented to person, place and time. There were no obvious focal neurologic abnormalities. Steady gait EXTREMITIES: Normal range of motion. BACK: Nontender without deformity Course Course Emergency Course: Patient been treated for sinusitis in the past is complaining of right-sided facial pain, she is grimacing motions when the pain is present and it comes and goes. Hard to assess with her prior psychiatric illness is connected to this at all Rule out is for trigeminal neuralgia, fracture of the tooth, other Called her primary care physician who says she has been noncompliant with visits and so until she comes back he cannot make any recommendations Started on baclofen and follow-up with PCP Level of Care: Express Care Visit Vital Signs Vital signs: Vital Signs Temperature 97.4 F L
== END 2021-11-23 12:19 | disposition home or self-care (01) ==
PROVIDERS: Emergency Provider Nurse Practitioner; PCP Emergency Medicine
DX: G50.0 Trigeminal neuralgia (principal); F31.9 Bipolar disorder, unspecified; F20.9 Schizophrenia, unspecified
CPT/HCPCS: 99213; G0463

== ENCOUNTER 2023-06-03 14:49 | Emergency (ER) | payer BC, SELFPAY ==
[2023-06-03 15:03] VITALS: BP 127/86; PULSE 85; RESP 16; TEMP 36.2; O2SAT 100
--- NOTE | 2023-06-03 15:49 | ED.GENADULT ---
HPI - General Adult General Chief complaint: Upper Respiratory Infection Stated complaint: chest pain left side Source: patient Mode of arrival: ambulatory Limitations: no limitations History of Present Illness HPI narrative: 27 y/o female with hx Bipoloar disorder and schizophrenia, presented for c/o left chest pain x3 days. Pt reports the pain is sharp, intermittent, and worse with laying flat or with deep breaths, or with touching the chest. Pt has not been following with psychiatrist for many years and has been off medication since prior to conceiving her 3y/o son. Pt is tearful throughout the encounter. States she has anger outburts. Eventually, pt admitted to homicidal ideations; admits she is concerned about how she treats her 3yo son and what she might do to him. States she has increased stress due to plan for starting a new job next week, and trying to care for her son. Denies SI, hearing voices or hallucinations. Denies sob, wheezing, cough, palpitations, n/v/d/f/c. Denies drug/alcohol use. Resides with mother and . Related Data Home Medications Medication Instructions Recorded Confirmed No Home Medications 06/03/23 06/03/23 Allergies Allergy/AdvReac Type Severity Reaction Status Date / Time No Known Allergies Allergy Verified 06/03/23 14:56 Review of Systems Review of Systems: CONSTITUTIONAL: Denies body aches, fever, chills, or sweats. EYES: Denies visual changes, redness, or discharge. ENT: Denies rhinorrhea, congestion, sore throat, or otalgia. CARDIOVASCULAR: Reports chest pain, Denies palpitations, or edema. RESPIRATORY: Denies cough or dyspnea. GASTROINTESTINAL: Denies abdominal pain, nausea, vomiting, or diarrhea. SKIN: Denies rash, or wounds. MUSCULOSKELETAL: Denies back pain, joint pain, or myalgia. NEUROLOGIC: Denies headache, numbness, tingling, or weakness. PSYCH: reports depression and anxiety. All systems reviewed & are unremarkable except as noted in HPI and below PMFSH Past Medical History Medical History Anxiety and depression Bipolar 1 disorder Schizophrenia Social History Social History Substance use: never Gender identity (if verbalized by the patient): Female Sexual Orientation (if Verbalized by the Patient): Straight or Heterosexual Comments At time of signature, I have reviewed and agree with nursing past medical, surgical, social and family history unless otherwise noted. Please see nursing chart for further information. There is no relevant family history pertinent to the presenting complaint Exam Narrative: GENERAL: Well-appearing, and in no acute distress. EYES: EOMI. No redness or drainage. Conjunctivae normal. ENT: Mucous membranes pink and moist. No rhinorrhea. NECK: Normal AROM. Supple. No lymphadenopathy. CHEST: No respiratory distress. Clear to auscultation. Left chest tender with palpation. HEART: Regular rate and rhythm. No murmur appreciated. Normal peripheral pulses. ABDOMEN: Soft, nontender, nondistended, normal active bowel sounds. EXTREMITIES: Normal range of motion. No edema. SKIN: Warm, dry, no rash. Capillary refill normal. Normal skin turgor. NEURO: No focal deficits. Alert and oriented x3. Gait steady. PSYCH: Tearful throughout encounter. Calm, cooperative. Course Course Emergency Course: Patient is aware of diagnosis, understands and agrees to treatment plan. Anticipatory guidance given. Patient agrees to follow-up as directed and is aware of reasons to seek care at the emergency department. Portions of this record may have been created with voice recognition software Level of Care: Express Care Visit Vital Signs Vital signs: Vital Signs Temperature 97.2 F L 06/03/23 15:03 Pulse Rate 85 06/03/23 15:03 Respiratory Rate 16 06/03/23 15:03 Blood Pressure 127/86 06/03/23 15:03 Pulse Oxi
--- NOTE | 2023-06-03 16:57 | PC.NURSE ---
1618: CALL PLACED TO 911 FOR TO TRANSPORT PT TO [facility] ED FOR PSYCH EVAL. 1622: [facility] AR[facility]IV[facility] AND BRIEFED ON SITUATION. INFORMED OFFICER PT GOING VOLUNTARILY AND THAT EMS TRANSPORT IS NEEDED AT THIS TIME. OFFICER CALLED AMBULANCE TO FACILITY. 1638: PT LEFT FACILITY CALMLY WITH [facility]. PT'S CHILD LEFT FACILITY WITH HIS FATHER KAHLIL LOZOYA.
== END 2023-06-03 16:38 ==
LOC: EXPCOLL 14:57
PROVIDERS: Emergency Provider Nurse Practitioner Family; PCP Emergency Medicine
DX: R45.850 Homicidal ideations (principal); F39 Unspecified mood [affective] disorder
CPT/HCPCS: 99215; G0463

== ENCOUNTER 2023-11-25 15:01 | Emergency (ER) | payer OTHER, BC, SELFPAY ==
[2023-11-25 15:34] VITALS: BP 129/90; PULSE 80; RESP 18; TEMP 36.7; O2SAT 100
--- NOTE | 2023-11-25 16:08 | PC.NURSE ---
when entering room patient was sleeping peacefully in stretcher. patient states after talking to staff about the situation their symptoms have resolved and would like to decline medication. patient states they now just feel tired after the stress.
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
[2023-11-25 16:48] VITALS: BP 125/87; PULSE 89; RESP 16; O2SAT 100
== END 2023-11-25 16:44 | disposition home or self-care (01) ==
PROVIDERS: Emergency Provider Emergency Medicine; PCP Emergency Medicine
DX: F41.1 Generalized anxiety disorder (principal)
CPT/HCPCS: 99281

== ENCOUNTER 2023-12-21 12:55 | Outpatient (CLI) | payer BC, SELFPAY ==
[2023-12-21 14:57] LABS: Influenza A QL RT-PCR Negative (Negative); Influenza B QL RT-PCR Negative (Negative); RSV RNA, RT-PCR Negative (Negative); SARS-CoV-2 RNA PCR Negative (Negative)
== END 2023-12-21 12:56 | disposition home or self-care (01) ==
PROVIDERS: PCP Emergency Medicine; Visit Provider Emergency Medicine
DX: J06.9 Acute upper respiratory infection, unspecified (principal)
CPT/HCPCS: 87637

== ENCOUNTER 2024-05-25 14:05 | Emergency (ER) | payer SELFPAY ==
--- NOTE | ~2024-05-25 | XR_ITS ---
EXAMINATION: XR chest 1V portable Exam Date/Time: 05/25/2024 14:50 CDT HISTORY: sob Comparison: 03/19/2020. RESULT: Lines, tubes, and devices: None. Lungs and pleura: Clear. Cardiomediastinal silhouette: Stable. Other: No acute osseous or upper abdominal finding. IMPRESSION: No acute cardiopulmonary process. Reviewed, dictated and finalized at location K.
--- OUTSIDE RECORDS SUMMARY | 2024-05-25 14:08 | XMS_ITS | Clinical Summary ---
Author Organization [facility] Address [address] [place] [address] Phone Care Team Providers Care Outreach Counselor Name Role Phone Unavailable Primary Care Provider Unavailabl e Allergies No known active allergies Medications No known medications Social History Tobacco Use Types Packs/Day Years Used Date Smoking Tobacco: Former Alcohol Use Standard Drinks/Week Comments Yes 0 (1 standard drink = 0.6 oz pur e alcohol) Comments No Sex and Gender Information Value Date Recorded Sex Assigned at Not on file Legal Sex Female 5:52 AM SENIOR PROJECT MANAGER ENGINEERING Gender Identity Not on file Sexual Orientation Not on file Last Filed Vital Signs Vital Sign Reading Time Taken Comments Blood Pressure 140/92 02/07/2019 6:42 AM SENIOR PROJECT MANAGER ENGINEERING Pulse 65 02/07/2019 6:42 AM SENIOR PROJECT MANAGER ENGINEERING Temperature 36.7 C (98 F) 02/07/2019 6:42 AM SENIOR PROJECT MANAGER ENGINEERING Respiratory Rate 16 02/07/2019 6:42 AM SENIOR PROJECT MANAGER ENGINEERING Oxygen Saturation 100% 02/07/2019 6:42 AM SENIOR PROJECT MANAGER ENGINEERING Inhaled Oxygen Concentration - - Weight 95.3 kg (210 lb) 02/07/2019 6:02 AM SENIOR PROJECT MANAGER ENGINEERING Height 175.3 cm (5' 9 ) 02/07/2019 6:02 AM SENIOR PROJECT MANAGER ENGINEERING Body Mass Index 31.01 02/07/2019 6:02 AM SENIOR PROJECT MANAGER ENGINEERING Plan of Treatment Health Maintenance Due Date Last Done Comments DTAP/TDAP/TD VACCINES (1 - Tdap) 2012 HEPATITIS B VACCINES (1 of 3 - 19+ 3-dose series) 2012 CERVICAL CANCER SCREENING 08/12/2023 INFLUENZA VACCINE (#1) 2023 HPV VACCINES Aged Out No longer eligi ble based on patient's age to complete this topic PNEUMOCOCCAL VACCINE 0-49 YEARS Aged Out No longer eligible based on patient's age to complete this topic
--- OUTSIDE RECORDS SUMMARY | 2024-05-25 14:08 | XMS_ITS | Referral Summary ---
Author Organization [facility] Address [address] [place] [address] Care Team Providers Care Waste Management Engineer Name Role Phone Unavailable Primary Care Provider Unavailabl e Source Comments [facility],non-owned Affiliates and Associated Physician Practices is amultiple site organization consisting of ambulatory clinics and hospital sitesin [place], [place], [place] and [place]. This disclosure is being madepursuant to the Care Everywhere program and may not contain all information available regarding this patient. Last updated 17.[facility] Allergies No known active allergies Medications * Be aware that medications may not be up to date on this document. Alwaysverify current medications with the patient. Medication Sig Dispensed Refills Start Date End Date Status azelastine (Astelin) 0.1 % nasal spray [place] 1 (one) spray to 2 (two) sprays into each nostril 2 times daily 90 mL 11 05/22/2023 Active Social History Tobacco Use Types Packs/Day Years Used Date Smoking Tobacco: Never Smokeless Tobacco: Never Tobacco Cessation:Counseling Given: Not Answered Sex and Gender Information Value Date Recorded Sex Assigned at Not on file Gender Identity Not on file Sexual Orientation Not on file Last Filed Vital Signs Vital Sign Reading Time Taken Comments Blood Pressure 136/86 05/22/2023 3:06 PM CDT Pulse 98 05/22/2023 3:06 PM CDT Temperature - - Respiratory Rate 18 05/22/2023 3:06 PM CDT Oxygen Saturation 98% 05/22/2023 3:06 PM CDT Inhaled Oxygen Concentration - - Weight 114.8 kg (253 lb) 05/22/2023 3:06 PM CDT Height 175.3 cm (5' 9 ) 05/22/2023 3:06 PM CDT Body Mass Index 37.36 05/22/2023 3:06 PM CDT Plan of Treatment Not on file Administered Medications
--- OUTSIDE RECORDS SUMMARY | 2024-05-25 14:08 | XMS_ITS | Continuity of Care Document ---
Author Name Parisa Cotto Address [address] [place] [address] Organization Unknown Address [address] [place], [place] [id number] [place] [address] Problems No known problems
--- OUTSIDE RECORDS SUMMARY | 2024-05-25 14:08 | XMS_ITS | Patient Health Summary ---
Author Organization [facility] Address [address] [place] [address] Care Team Providers Care Destination Sign Repairer Name Role Phone Unavailable Primary Care Provider Unavailabl e Note from [facility],non-owned Affiliates and Associated Physician Practices is amultiple site organization consisting of ambulatory clinics and hospital sitesin [place], [place], [place] and [place]. This disclosure is being madepursuant to the Care Everywhere program and may not contain all information available regarding this patient. Last updated 17.[facility] Allergies No known active allergies Medications * Be aware that medications may not be up to date on this document. Alwaysverify current medications with the patient. * azelastine (Astelin) 0.1 % nasal spray(Started 05/22/2023) [place] 1 (one) spray to 2 (two) sprays into each nostril 2 times daily 11 refills by 05/21/2024 Social History Tobacco Use Types Packs/Day Years [...] Mass Index 37.36 05/22/2023 3:06 PM CDT Procedures * SKIN TEST PPD - POINT OF CARE(Performed 06/20/2016) Performed for Screening examination for pulmonary tuberculosis Results * SKIN TEST PPD - POINT OF CARE (06/20/2016 5:27 PM CDT) PPD 0mm MISCELLANEOUS SAMPLE S / Unknown 06/20/2016 5:27 PM CDT Maria R Campbell [facility] - POINT O F CARE ORDERABLES
--- OUTSIDE RECORDS SUMMARY | 2024-05-25 14:08 | XMS_ITS | Continuity of Care Document ---
Author Name Parisa Cotto Address [address] [place], [place] [id number] [place] [address] Organization Unknown Address [address] [place] [address] Medications No known medications Problems No known problems
--- OUTSIDE RECORDS SUMMARY | 2024-05-25 14:08 | XMS_ITS | Clinical Summary ---
Author Organization [facility] Address [address] [place] [address] Care Team Providers Care Chief Radiologic Technologist Name Role Phone Unavailable Primary Care Provider Unavailabl e Source Comments [facility],non-owned Affiliates and Associated Physician Practices is amultiple site organization consisting of ambulatory clinics and hospital sitesin [place], [place], [place] and [place]. This disclosure is being madepursuant to the Care Everywhere program and may not contain all information available regarding this patient. Last updated 17.[facility] Allergies No known active allergies Medications * Be aware that medications may not be up to date on this document. Alwaysverify current medications with the patient. Medication Sig Dispensed Refills Start Date End Date Status azelastine (Astelin) 0.1 % nasal spray [place] 1 (one) spray to 2 (two) sprays [...] 05/22/2023 3:06 PM CDT Plan of Treatment Health Maintenance Due Date Last Done Comments PAP SMEAR 1993 HIV SCREENING 2008 HEPATITIS C SCREENING 08/07/2011 DTAP/TDAP/TD VACCINES (1 - Tdap) 2012 HEPATITIS B VACCINE (1 of 3 - 19+ 3-dose series) 2012 COVID-19 VACCINE (1 - 2023-2 5 season) 2023 INFLUENZA VACCINE (#1) 2023 DEPRESSION SCREENING 03/13/2024 ZOSTER VACCINE (1 of 2) 08/12/2043 HIB VACCINE Aged Out No longer eligi ble based on patient's age to complete this topic HPV VACCINE Aged Out No longer eligi ble based on patient's age to complete this topic MENINGOCOCCAL (Group B) VACC INE SHARED DECISION-MAKING Aged Out No longer eligibl e based on patient's age to complete this topic MENINGOCOCCAL GROUPS A/C/Y/W VACCINE Aged Out No longer eligible b ased on patient's age to complete this topic PNEUMOCOCCAL VACCINE Aged Out No long er eligible based on patient's age to complete this topic
--- OUTSIDE RECORDS SUMMARY | 2024-05-25 14:08 | XMS_ITS | CONTINUITY OF CARE DOCUMENT ---
Author Name jerel beltrán Address Unknown Organization [facility] Address [id number] [place] [address] [address] [place] [address] Phone [phone] Care Team Providers Care Bicycle Inspector Name Role Phone Jennifer Blanco MD Unavailable [phone] Jennifer Blanco MD Unavailable [phone] INSURANCE PROVIDERS Payer name Policy type / Coverage type [employer] [facility] Medicaid 0 [id number]
--- OUTSIDE RECORDS SUMMARY | 2024-05-25 14:08 | XMS_ITS | Referral Summary ---
Author Organization [facility] Address [address] [place] [address] Care Team Providers Care Yoga Instructor Name Role Phone Miscellaneous, Not In File Primary Care Provider Unavailable Allergies No known active allergies Medications famotidine (PEPCID) 20 mg tablet Take 1 tablet (20 mg total) by mouth 2 (two) times a day 60 tablet 11 1 Active Additional Information Patient not taking.Reported on 04/23/2021 28 mg iron- 800 mcg tablet 1 Active fluticasone propionate (FLONASE) 50 mcg/actuation nasal spray 1 Active ibuprofen (ADVIL,MOTRIN) 600 mg tabletIndicatio ns:Cramps Take 1 tablet (600 mg total) by mouth every 6 (six) hours as needed for pain 90 tablet 1 1 Active Additional Information Patient not taking.Reported on 04/23/2021 acetaminophen 500 mg capsuleIndicati ons:Fever,Pain Take 2 capsules (1,000 mg total) by mouth every 6 (six) hours as needed for pain 90 tablet 1 1 Active Additional Information Patient not taking.Reported on 04/23/2021 NIFEdipine (PROCARDIA XL/ADALAT CC) 30 mg 24 hr tablet Take 1 tablet (30 mg total) by mouth daily 30 tablet 2 1 Active Additional Information Patient not taking.Reported on 04/23/2021 nystatin 100,000 unit/mL suspension Take 1 mL (100,000 Units total) by mouth 4 (four) times a day 60 mL 2 Active Additional Information Patient not taking.Reported on 04/23/2021 miconazole 2 % cream Apply topically 2 (two) times a day 28.35 g 2 Active Additional Information Patient taking differently:topical 2 times daily,Prn when she needs it, Reported on 04/23/2021 Hospital, Clinic, or Other Facility Administered Medication Ordered Dose Route Frequency Start Date End Date Status levonorgestreL (LILETTA) 20.1 mcg/24 hrs (6 yrs) 52 mg IUD 1 eachIndications:Pre gnancy Contraception 1 each intrauterine Continuous (implanted device) 03/26/2021 8 Active Active Problems Problem Noted Date Diagnosed Date care following vaginal delivery 02/10 Overview (03/26/2021): # progress: Doing well from standpoint. Cleared for physical and sexual activity. # issues: reviewed hand expression, frequency of pumping; referred to consultants # cHTN: continue NXL 30, monitor BP at 4 week string check # Mood: EPDS 13, never to last question # MOC: hormonal IUD placed 03/26/2021 # Pap: NILM 08/2020 Vulvar irritation 01/08/2021 Overview (01/15/2021): Endorses itching, irritation around clitoris, mild itching in introitus. White discharge. Exam shows no focal findings around her clitoris, mild erythema of introitus. Started on triamcinolone-nystatin cream Vulvar cx - + yeast albicans, rx dilfucan 150 mg x 1 (3T) Encounter for supervision of normal first in second trimester 08/31/2020 Overview (02/01/2021): First Trimester: [x] Dating Criteria: L=1 [x] Labs: Rh +/Ab -/HIV neg/Rub Imm/RPR NR/HepB neg > Taken from [facility] [x] Genetic Screening: Quad screen (15-18 wks) [x] Hgb electrophoresis (if indicated) ordered 08/31 [x] GC/CT: neg [x] Ucx: neg [x] Pap: NILM [x] ASA 81 daily: counseled to start 08/31 [] PNBHS referral (if indicated) 2nd Trimester: [x] Anatomy ultrasound: s/p normal anatomy [x] Placenta: anterior [x] CBC: 10.9 [x] 1hr gtt at 24-28wks: 86 [] Flu Shot (Nov-Feb) [x] Tdap (27-36wks): s/p 11/27 [x] Rhogam (if Rh neg): N/A [] COVID Vaccine: unvaccinated. Addressed 12/11, 01/22. Patient remains hesitant, discussed safety in and ACOG/CDC recommendations for vaccination in . Patient plans to get vaccine after delivery. Counseled to continue to wear masks and socially distance 3rd Trimester: [x] CBC/HIV/RPR/T&S Hgb 11.0; NR/NR [x] GBS - GBS+ [x] GC/CT (if indicated) neg/neg Counseling: [x] Method of delivery: Anticipate vaginal delivery - IOL sched for 02/09 at 2000 [x] Method of contraception: interested in IUD [x] Method of feeding: breast [x] Packaging Line Attendant: looking [] PP Depression [x] Attg visits (06/14) Chronic hypertension 08/31/2020 Overview (03/26/2021): Patient reports having high blood pressure sometime in the summer in 2019 that resolved on its own. Noted to have mild range blood pressures previously outside of . Baseline labs: Cr 0.61, AST 28, ALT 23, Hgb 11.2, Plt 132 Current Medications: NXL 30 mg daily (started ) Anxiety disorder 08/03/2010 Overview (08/31/2020): Reports history of being on Abilify, but has been off medications for a year with stable mood. Resolved Problems Problem Noted Date Diagnosed Date Resolved Date Labor and delivery, indication for care 02/09/2021 03/26/2021 Overview (02/10/2021): 1. Induction of labor for cHTN: Admit to L&D. Consents signed and placed in chart. Send CBC/T&S/RPR. Induction of labor with misoprostol and CC. 2. CHTN: on no meds, baseline labs WNL 3. Abnormal quad screen: high risk, s/p normal amniocentesis and specialized anatomy scan 4. FWB: Continuous monitoring. Reactive NST 5. ID: HIV negative. GBS negative. Membrane Status: intact. 6. Indications for UDS: none. Verbal consent obtained for UDS: Not indicated 7. MOF: Plans to breastfeed. 8. MOC: Plans to use PP IUD for contraception. 9. Pain management: Undecided on epidural. 10. Post DVT prophylaxis: The patient has the following MAJOR risk factors none and the following MINOR risk factors BMI 30-39 and none. SCDs will be ordered for VTE prophylaxis . 11. COVID Vaccine Status: Not previously received: willing to get it in PP period 12. COVID Test Status: Test sent on admission Abnormal quad screen 09/28/2020 022 Overview (09/28/2020): High risk quad screen, now s/p normal amniocentesis and specialized anatomy. Severe malnutrition (CMS/HCC) 08/13/2020 02/01/2021 Hyperemesis gravidarum 08/12/202003/26 Overview (08/31/2020): S/P APU admission for hyperemesis with associated weight loss. Has since been well managed on anti-emetics, tolerating food, and gaining weight. Immunizations Immunization Administration Dates Next Due Influenza, Quadrivalent, Spl it, Preservative Free, Intramuscular 02/12/2021 Pfizer SARS-CoV-2 Monovalent Vaccination (12+ Yrs) PURPLE 02/11/2021 Tdap 11/27/2020 Social History Tobacco Use Types Packs/Day Years Used Date Smoking Tobacco: Former Cigarettes 0 08/13/2011 - 08/13/2019 Smokeless Tobacco: Never Tobacco Cessation:Counseling Given: Not Answered Social Connection and Isolat ion Panel [NHANES] Answer Date Recorded In a typical week, how many times do you talk on the phone with family, friends, or neighbors? More than three times a week 02/12/2021 How often do you get togethe r with friends or relatives? More than three times a week 02/12/2021 Attends [employer] Services Not on file 02/12 Active Member of Clubs or Organizations Not on f ile 02/12/2021 Attends Club or Organization Meetings Not on mily e 02/12/2021 Are you , , di vorced, , never , or living with a partner? 02/12/2021 AUDIT-C Answer Date Recorded Q1: How often do you have a drink containing alc ohol? Never 03/01/2021 Average Number of Drinks Not on file 021 Frequency of Binge Drinking Not on file 02/11 Overall Financial Resource Strain (CARDIA) Answe r Date Recorded How hard is it for you to pa y for the very basics like food, housing, medical care, and heating? Not hard at all 02/12/2021 Hunger Vital Sign Answer Date Recorded Within the past 12 months, y ou worried that your food would run out before you got the money to buy more. Never true 10/22/19 23 Within the past 12 months, t he food you bought just didn't last and you didn't have money to get more. Never true 10/21/2022 PRAPARE - Transportation Answer Date Re corded In the past 12 months, has l ack of transportation kept you from medical appointments or from getting medications? No 05/2020 In the past 12 months, has l ack of transportation kept you from meetings, work, or from getting things needed for daily living? No 02/12/2021 Housing Stability Vital Sign Answer Moises e Recorded In the last 12 months, was t here a time when you were not able to pay the mortgage or rent on time? No 02/12/2021 Number of Places Lived in the Last Year Not on f ile 02/12/2021 In the last 12 months, was t here a time when you did not have a steady place to sleep or slept in a mcfp (including now)? No 02/12/2021 [place] Depression Scale Answer Date Recorded [place] Depression Scale Total 13 03/26/2021 The thought of harming myself has occurred to me . 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 Gender Identity Female 08/23/2020 7:32 PM CDT Sexual Orientation Straight 08/23/2020 7: 33 PM CDT Last Filed Vital Signs Vital Sign Reading Time Taken Comments Blood Pressure 138/95 10/21/2022 2:35 PM CDT Pulse 95 10/21/2022 2:35 PM CDT Temperature 35.9 C (96.7 F) 10/21/2022 2:35 PM CDT Respiratory Rate 20 10/21/2022 2:35 PM CDT Oxygen Saturation 98% 10/21/2022 2:35 PM CDT Inhaled Oxygen Concentration - - Weight 117.4 kg (258 lb 14.4 oz) 10/21/2022 2:35 PM CDT Height 175.9 cm (5' 9.25 ) 10/21/2022 2:35 PM CD T Body Mass Index 37.96 10/21/2022 2:35 PM CDT Plan of Treatment Not on file Procedures Procedure Name Priority Date/Time Associated Diagnosis Comments HEPATITIS C ANTIBODY Routine 10/21/2022 3:20 PM CDT Screening for STD (sexually transmitted disease) PAP WITH REFLEX TO HIGH RISK HPV Routine 08/31/2020 10:16 AM CDT Encounter for supervision of normal first in second trimester from Last 3 Months or Most Recently Relevant to Health Maintenance Results * Hepatitis C antibody (10/21/2022 3:20 PM CDT) Hep C Ab Nonreactive Nonreactive [facility] Comment:Antibodies to HCV no t detected. Does NOT exclude the possibility of recent exposure to HCV. Current interpretive data was last revised on 21 Blood 10/21/2022 3:20 PM CDT 10/21/2022 6:02 PM CDT us Madyson Arce MD LAB MICROBIOLOGY - [facility] ORDERABLES Final Result [facility] Department [place] [address] * Pap with reflex to High Risk HPV (08/31/2020 10:16 AM CDT) Swab (Pap test) 08/31/2020 1 0:16 AM CDT 08/31/2020 2:17 PM CDT Narrative PATHOLOGY [facility] - 09/11/2020 12:31 PM CDT EPIC results best viewed via link to PDF [facility] Marilee Valles Laboratory of Surgical [place] [address] CYTOPATHOLOGY REPORT FINAL Patient Name: DELPHINE LOZOYA Gender: F : 1995 (Age: 25) Address: [address] [place] [address] Hospital #: [id number] Service: Gynecology Location: [facility] Patient Type: [facility] Ancillary Taken: 08/31/2020 Received: 08/31/2020 Accessioned: 08/31/2020 Reported: 09/11/2020 Physician(s): Margo Mccloud, MPHS FINAL INTERPRETATION SOURCE OF SPECIMEN: Liquid based Thin Prep pap with Reflex HPV STATEMENT OF ADEQUACY: - Satisfactory for evaluation - No endocervical/transformation zone sample present in a patient GENERAL CATEGORY: - Negative for squamous intraepithelial lesion or malignancy richard/09/11/2020 12:31 ANUPAM Durbin(ASCP) Report Electronically Reviewed and Signed Out By ANUPAM Durbin(ASCP) 09/11/2020 12:31:38 Cervicovaginal Cytology (Pap Test) Disclaimer: The Pap test is a screening test used to detect cervical cancer and its precursors; it is not a diagnostic procedure. False negative and false positive results do occur. Pap test results should be interpreted in the context of pertinent clinical information and biopsy results as indicated. Gross Description A. Liquid based Thin Prep pap with Reflex HPV: Cervical/vaginal - Screening ThinPrep Clinical Diagnosis and History Last Menstrual Period: 05/27/2020 Menstrual History: The patient is a 25 year old woman with history of abnormal pap. Report Images and scanned documents, if included only viewable in PDF version The performance characteristics of some immunohistochemical stains, in-situ hybridization and fluorescence in-situ hybridization tests and immunophenotyping by flow cytometry cited in this report (if any) were determined by the Surgical Pathology Department at [facility] as part of an ongoing quality control program and in compliance with federally mandated regulations drawn from the Clinical Laboratory Improvement Act of 1988 (CLIA '88). Some of these tests rely on the use of analyte specific reagents and are subject to specific labeling requirements by the US Food and Drug Administration. Such diagnostic tests may only be performed in a facility that is certified by the Department of Health and Human Services as a high complexity laboratory under CLIA '88. The FDA has determined that such clearance or approval is not necessary. This test is used for clinical purposes. It should not be regarded as investigational or for research. Nevertheless, federal rules concerning the medical use of analyte specific reagents require that the following disclaimer be attached to the report: This test was developed and its performance characteristics determined by the Surgical Pathology Department of [facility]. It has not been cleared or approved by the U. S. Food and Drug Administration. Margo Mccloud MD LAB CYTOLOGY ORDERABLES Final Re sult PATHOLOGY [facility] 3rd Floor [place], [place] [phone] from Last 3 Months or Most Recently Relevant to Health Maintenance Insurance [facility] CHOICE PLUS [facility] CHOICE PLUS R [facility] IDPA COMMERCIAL GENERIC [facility] PPO [facility] PLAN [email or web address] [facility] [email or web address] OOS Advance Directives For more information, please contact: [phone] * Full Code (Latest Code Status on File) Date Activated Date Inactivated Comments 02/10/2021 6:48 PM 02/13/2021 1:51 AM * Full Code Date Activated Date Inactivated Comments 02/09/2021 9:08 PM 02/10/2021 6:48 PM Full CPR in case of cardiopulmonary arrest * Full Code Date Activated Date Inactivated Comments 08/13/2020 12:49 AM 08/14/2020 9:32 PM Care Teams Yoga Instructor Relationship Specialty Start Date End Date Miscellaneous, Not In File PCP - General 08/12/20
--- OUTSIDE RECORDS SUMMARY | 2024-05-25 14:08 | XMS_ITS | Clinical Summary ---
Author Organization [facility] Address [address] [place] [address] Care Team Providers Care Agricultural Engineer Name Role Phone Miscellaneous, Not In File [...] neg/Rub Imm/RPR NR/HepB neg > Taken from [facility] [x] Genetic Screening: Quad screen [...] IUD [x] Method of feeding: breast [x] Painter Aircraft: looking [] PP Depression [x] Attg visits [...] Vaccination (12+ Yrs) PURPLE 02/11/2021 Tdap 11/27/2020 Medical History Medical History Date Comments Hypertension Mental disorder was on anxiety m eds in the past Urinary tract infection Abnormal Pap smear of cervix Asthma just a rescue in [place] Social History Tobacco Use Types Packs/Day Years [...] than three times a week 02/12/2021 Attends [employer] Services Not on file 02/12 Active Member [...] place to sleep or slept in a mcc (including now)? No 02/12/2021 [place] Depression Scale Answer Date Recorded [place] Depression Scale Total 13 03/26/2021 The thought of harming myself has occurred to me . 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 Gender Identity Female 08/23/2020 7:32 PM CDT Sexual Orientation Straight 08/23/2020 7: 33 PM CDT Obstetrics History Para Term AB IAB SAB Ectopic Multiple Livin g Live Births 1 1 1 0 1 1 Date Outcome GA Total Labor Labor/2nd/3rd Weight Sex Type Anes PTL Kathryn A1 A5 Name Clin 2020 Term 39w 1d 0h 11m 0h 07m/0h 04m 3.47 kg (7 lb 10.4 oz) M Vag-S pont Combin ed Spinal /Epidu ral N Livin g 8 9 CANAD AY,SUMAN YIDOC IA Scott erg, Jamel Rubin MD Complications:Shoulder Dysto negro Delivery Location:[facility] ([facility]LD) Last Filed Vital Signs Vital Sign Reading [...] 10/21/2022 2:35 PM CDT Plan of Treatment Health Maintenance Due Date Last Done Comments Varicella Vaccines (1 of 2 - 13+ 2-dose series) 2006 Hepatitis B Screening 08/12/2011 Cervical Cancer Screening 08/31/2021 08/31/2020 Depression Screening 03/26/2022 03/26/2021 Regular Well Visit/Exam 18-64 10/22/2023 10/21/2022 Covid-19 Vaccine (3 - 2023-2 5 season) 2023 12/02/2021, 02/11/2021 Influenza Vaccine (#1) 2023 02/12/2021 DTaP/Tdap/Td Vaccine (2 - Td or Tdap) 11/27/2030 11/27/2020 Hepatitis C Screening Completed 10/21/2022 HPV Vaccines Aged Out No longer eligi ble based on patient's age to complete this topic Pneumococcal vaccine <65 Aged Out No longer eligible based on patient's age to complete this topic Procedures Procedure Name Priority Date/Time Associated Diagnosis [...] CDT) Hep C Ab Nonreactive Nonreactive [facility] Comment:Antibodies to HCV no t detected. Does NOT exclude the possibility of recent exposure to HCV. Current interpretive data was last revised on 21 Blood 10/21/2022 3:20 PM CDT 10/21/2022 6:02 PM CDT us Madyson Arce MD LAB MICROBIOLOGY - [facility] ORDERABLES Final Result [facility] [place] [address] * Pap with reflex to High Risk HPV (08/31/2020 10:16 AM CDT) Swab (Pap test) 08/31/2020 1 0:16 AM CDT 08/31/2020 2:17 PM CDT Narrative PATHOLOGY [facility] - 09/11/2020 12:31 PM CDT EPIC results best viewed via link to PDF [facility] Marilee Valles Laboratory [place] [address] CYTOPATHOLOGY REPORT FINAL Patient Name: DELPHINE LOZOYA Gender: F : 1995 (Age: 25) Address: [address] [place] [address] Hospital #: [id number] Service: Gynecology Location: [facility] Patient Type: [facility] Ancillary Taken: 08/31/2020 Received: 08/31/2020 Accessioned: 08/31/2020 Reported: 09/11/2020 Physician(s): Margo Mccloud, MPHS FINAL INTERPRETATION SOURCE OF SPECIMEN: Liquid based Thin Prep pap with Reflex HPV STATEMENT OF ADEQUACY: - Satisfactory for evaluation - No endocervical/transformation zone sample present in a patient GENERAL CATEGORY: - Negative for squamous intraepithelial lesion or malignancy 09/11/2020 12:31 ANUPAM Durbin(ASCP) Report Electronically Reviewed and [...] determined by the Surgical Pathology Department at [facility] as part of an ongoing software quality automation engineer program and in compliance with federally mandated [...] determined by the Surgical Pathology Department of [facility]. It has not been cleared or approved by the U. S. Food and Drug Administration. Margo Mccloud MD LAB CYTOLOGY ORDERABLES Final Re sult PATHOLOGY [facility] 3rd Floor [place], [place] [phone] from Last 3 Months or Most Recently Relevant to Health Maintenance Insurance [facility] CHOICE PLUS [facility] PLUS U[facility] IDPA COMMERCIAL GENERIC [facility] PPO [facility] PLAN [facility] PLAN [employer] OOS [address] [phone] Advance Directives For more information, please contact: [phone] * Full Code (Latest Code Status on File) Date Activated Date Inactivated Comments 02/10/2021 6:48 PM 02/13/2021 1:51 AM * Full Code Date Activated Date Inactivated Comments 02/09/2021 9:08 PM 02/10/2021 6:48 PM Full CPR in case of cardiopulmonary arrest * Full Code Date Activated Date Inactivated Comments 08/13/2020 12:49 AM 08/14/2020 9:32 PM Care Teams Agricultural Engineer Relationship Specialty Start Date End Date Miscellaneous, Not In File PCP - General 08/12/20
[2024-05-25 14:24] VITALS: BP 139/80; PULSE 77; RESP 18; TEMP 36.6; O2SAT 100
--- OUTSIDE RECORDS SUMMARY | 2024-05-25 14:51 | XMS_ITS | Referral Summary ---
Author Organization [facility] Address [address] [place] [address] Care Team Providers Care Reporting Analyst Name Role Phone Miscellaneous, Not In File [...] neg/Rub Imm/RPR NR/HepB neg > Taken from [facility] [x] Genetic Screening: Quad screen (15-18 wks) [...] IUD [x] Method of feeding: breast [x] Public Relations Consultant: looking [] PP Depression [x] Attg visits [...] than three times a week 02/12/2021 Attends [employer] Not on file 02/12 Active Member [...] place to sleep or slept in a penitentiary (including now)? No 02/12/2021 [place] Depression Scale Answer Date Recorded [place] Depression Scale Total 13 03/26/2021 The thought of harming myself has occurred to me . 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 Does NOT exclude the possibility of recent exposure to HCV. Current interpretive data was last revised on 21 Blood 10/21/2022 3:20 PM CDT 10/21/2022 6:02 PM CDT us Madyson Arce MD LAB MICROBIOLOGY - GENE [facility] ORDERABLES Final Result [facility] Department [place] [address] * Pap with reflex to High Risk HPV (08/31/2020 10:16 AM CDT) Swab (Pap test) 08/31/2020 1 0:16 AM CDT 08/31/2020 2:17 PM CDT Narrative PATHOLOGY [facility] - 09/11/2020 12:31 PM CDT EPIC results best viewed via link to PDF [facility] Marilee Valles [facility] [place] [address] CYTOPATHOLOGY REPORT FINAL Patient Name: DELPHINE LOZOYA Gender: F : 1995 (Age: 25) Address: [address] [place] [address] Hospital #: [id number] Service: Gynecology Location: [facility] Patient Type: [facility] Ancillary Taken: 08/31/2020 Received: 08/31/2020 Accessioned: 08/31/2020 [...] Electronically Reviewed and Signed Out By ANUPAM Durbni(ASCP) 09/11/2020 12:31:38 Cervicovaginal Cytology (Pap Test) Disclaimer: [...] determined by the Surgical Pathology Department at [facility] as part of an ongoing vice president quality improvement program and in compliance with federally mandated [...] determined by the Surgical Pathology Department of [facility]. It has not been cleared or approved by the U. S. Food and Drug Administration. Margo Mccloud MD LAB CYTOLOGY ORDERABLES Final Re sult PATHOLOGY [facility] 3rd Floor [place], [place] [phone] from Last 3 Months or Most Recently Relevant to Health Maintenance Insurance [facility] CHOICE PLUS [facility] CHOICE PLUS R [facility] IDPA COMMERCIAL GENERIC [facility] PPO [facility] PLAN [facility] PLAN [employer] [facility] [employer] OOS Advance Directives For more information, please contact: [phone] * Full Code (Latest Code Status on File) Date Activated Date Inactivated Comments 02/10/2021 6:48 PM 02/13/2021 1:51 AM * Full Code Date Activated Date Inactivated Comments 02/09/2021 9:08 PM 02/10/2021 6:48 PM Full CPR in case of cardiopulmonary arrest * Full Code Date Activated Date Inactivated Comments 08/13/2020 12:49 AM 08/14/2020 9:32 PM Care Teams Reporting Analyst Relationship Specialty Start Date End Date Miscellaneous, Not In File PCP - General 08/12/20
--- OUTSIDE RECORDS SUMMARY | 2024-05-25 14:51 | XMS_ITS | Clinical Summary ---
Author Organization [facility] Address [address] [place] [address] Care Team Providers Care Recording Studio Internship Name Role Phone Unavailable Primary Care Provider Unavailabl e Source Comments [facility],non-owned Affiliates and Associated Physician Practices is amultiple site organization consisting of ambulatory clinics and hospital sitesin [place], [place], [place] and [place]. This disclosure is being madepursuant to the Care Everywhere program and may not contain all information available regarding this patient. Last updated 17.[facility] Allergies No known active allergies Medications * Be aware that medications may not be up to date on this document. Alwaysverify current medications with the patient. Medication Sig Dispensed Refills Start Date End Date Status azelastine (Astelin) 0.1 % nasal spray [place] 1 (one) spray to 2 (two) sprays [...]
--- OUTSIDE RECORDS SUMMARY | 2024-05-25 14:51 | XMS_ITS | Clinical Summary ---
Author Organization [facility] Address [address] [place] [address] Care Team Providers Care Forming Department Supervisor Name Role Phone Miscellaneous, Not In File [...] IUD [x] Method of feeding: breast [x] Brand Strategy Manager: looking [] PP Depression [x] Attg visits [...] than three times a week 02/12/2021 Attends [facility] Not on file 02/12 Active Member [...] place to sleep or slept in a intermediate (including now)? No 02/12/2021 [place] Depression Scale Answer Date Recorded [place] Depression Scale Total 13 03/26/2021 The thought of harming myself has occurred to me . Never 03/26/2021 Personal Safety Answer Date Recorded Getting School Help Needed Not on file 02/24 Comments No Sex and Gender Information Value Date Recorded Sex Assigned at Not on file Legal Sex Female 10:45 PM BATTALION CHIEF Gender Identity Female 08/23/2020 7:32 PM CDT [...] Jamel Rubin MD Complications:Shoulder Dysto negro Delivery Location:[facility] ([facility]) Last Filed Vital Signs Vital Sign [...] CDT) Hep C Ab Nonreactive Nonreactive [facility] Comment:Antibodies to HCV no t detected. Does NOT exclude the possibility of recent exposure to HCV. Current interpretive data was last revised on 21 Blood 10/21/2022 3:20 PM CDT 10/21/2022 6:02 PM CDT us Madyson Arce MD LAB MICROBIOLOGY - GENE [facility] ORDERABLES Final Result [facility] [place] [address] * Pap with reflex to High Risk HPV (08/31/2020 10:16 AM CDT) Swab (Pap test) 08/31/2020 1 0:16 AM CDT 08/31/2020 2:17 PM CDT Narrative PATHOLOGY [facility] - 09/11/2020 12:31 PM CDT EPIC results best viewed via link to PDF [facility] Marilee Valles Laboratory [place] [address] CYTOPATHOLOGY REPORT FINAL Patient Name: DELPHINE LOZOYA Gender: F : 1995 (Age: 25) Address: [address] [place] [address] Hospital #: [id number] Service: Gynecology Location: [facility] Patient Type: [facility] Ancillary Taken: 08/31/2020 Received: 08/31/2020 Accessioned: 08/31/2020 [...] determined by the Surgical Pathology Department at [facility] as part of an ongoing quality improvement engineer program and in compliance with federally [...] determined by the Surgical Pathology Department of [facility]. It has not been cleared or approved by the U. S. Food and Drug Administration. Margo Mccloud MD LAB CYTOLOGY ORDERABLES Final Re sult PATHOLOGY [facility] 3rd Floor [place], [place] [phone] from Last 3 Months or Most Recently Relevant to Health Maintenance Insurance [facility] [place] [address] [facility] CHOICE PLUS U[employer] [facility] IDPA COMMERCIAL GENERIC [facility] PPO [facility] PLAN [facility] PLAN [employer] OOS [address] [place] [id number] Advance Directives For more information, please contact: [phone] * Full Code (Latest Code Status on File) Date Activated Date Inactivated Comments 02/10/2021 6:48 PM 02/13/2021 1:51 AM * Full Code Date Activated Date Inactivated Comments 02/09/2021 9:08 PM 02/10/2021 6:48 PM Full CPR in case of cardiopulmonary arrest * Full Code Date Activated Date Inactivated Comments 08/13/2020 12:49 AM 08/14/2020 9:32 PM Care Teams Forming Department Supervisor Relationship Specialty Start Date End Date Miscellaneous, Not In File PCP - General 08/12/20
--- OUTSIDE RECORDS SUMMARY | 2024-05-25 14:51 | XMS_ITS | CONTINUITY OF CARE DOCUMENT ---
Author Name jerel beltrán Address Unknown Organization [facility] Address [address] [place] [address] [address] [place] [address] Phone [phone] Care Team Providers Care Railroad Inspector Name Role Phone Jennifer Blanco MD Unavailable Jennifer Blanco MD Unavailable INSURANCE PROVIDERS Payer name Policy type / Coverage type [place] red republican [employer] [facility] Medicaid 0 [id number]
--- OUTSIDE RECORDS SUMMARY | 2024-05-25 14:51 | XMS_ITS | Patient Health Summary ---
Author Organization [facility] Address [address] [place] [address] Care Team Providers Care Geriatric Aide Name Role Phone Unavailable Primary Care Provider Unavailabl e Note from [facility],non-owned Affiliates and Associated Physician Practices is amultiple site organization consisting of ambulatory clinics and hospital sitesin [place], [place], [place] and [place]. This disclosure is being madepursuant to the Care Everywhere program and may not contain all information available regarding this patient. Last updated 17.[facility] Allergies No known active allergies Medications * Be aware that medications may not be up to date on this document. Alwaysverify current medications with the patient. * azelastine (Astelin) 0.1 % nasal spray(Started 05/22/2023) [place] 1 (one) spray to 2 (two) sprays [...] 06/20/2016 5:27 PM CDT Maria R Campbell ORTHOPEDIC CAST SPECIALIST-MANAGER ENT LAB - [facility] ORDERABLES
--- OUTSIDE RECORDS SUMMARY | 2024-05-25 14:51 | XMS_ITS | Referral Summary ---
Author Organization [facility] [employer] Address [address] [address] [place] [address] Care Team Providers Care Internal Sales Engineer Name Role Phone Unavailable Primary Care Provider Unavailabl e Source Comments [facility] [employer],non-owned Affiliates and Associated Physician Practices is amultiple site organization consisting of ambulatory clinics and hospital sitesin [place], [place], [place] and [place]. This disclosure is being madepursuant to the Care Everywhere program and may not contain all information available regarding this patient. Last updated 17.[facility] [employer] Allergies No known active allergies Medications * Be aware that medications may not be up to date on this document. Alwaysverify current medications with the patient. Medication Sig Dispensed Refills Start Date End Date Status azelastine (Astelin) 0.1 % nasal spray [place] 1 (one) spray to 2 (two) sprays [...]
--- OUTSIDE RECORDS SUMMARY | 2024-05-25 14:51 | XMS_ITS | Clinical Summary ---
Author Organization [facility] Address [address] [place] [address] Phone Care Team Providers Care Rice Cleaning Machine Tender Name Role Phone Unavailable Primary Care Provider [...] on file Legal Sex Female 5:52 AM FINISHING RANGE SUPERVISOR Gender Identity Not on file Sexual Orientation Not on file Last Filed Vital Signs Vital Sign Reading Time Taken Comments Blood Pressure 140/92 02/07/2019 6:42 AM FINISHING RANGE SUPERVISOR Pulse 65 02/07/2019 6:42 AM FINISHING RANGE SUPERVISOR Temperature 36.7 C (98 F) 02/07/2019 6:42 AM FINISHING RANGE SUPERVISOR Respiratory Rate 16 02/07/2019 6:42 AM FINISHING RANGE SUPERVISOR Oxygen Saturation 100% 02/07/2019 6:42 AM FINISHING RANGE SUPERVISOR Inhaled Oxygen Concentration - - Weight 95.3 kg (210 lb) 02/07/2019 6:02 AM FINISHING RANGE SUPERVISOR Height 175.3 cm (5' 9 ) 02/07/2019 6:02 AM FINISHING RANGE SUPERVISOR Body Mass Index 31.01 02/07/2019 6:02 AM FINISHING RANGE SUPERVISOR Plan of Treatment Health Maintenance Due Date [...]
[2024-05-25 15:41] LABS: Influenza A QL RT-PCR Positive (Negative); Influenza B QL RT-PCR Negative (Negative); RSV RNA, RT-PCR Negative (Negative); SARS-CoV-2 RNA PCR Negative (Negative)
--- NOTE | 2024-05-25 15:49 | ED_ITS ---
HPI - General Adult General Chief complaint: Upper Respiratory Infection Stated complaint: PHILLIPS,BODY ACHES,COUGH,CONGESTION Time Seen by Provider: 05/25/24 14:45 History of Present Illness HPI narrative: 28-year-old female presents emergency department for evaluation for cough congestion body aches and fatigue. Patient states both her and her do have the symptoms. Patient's symptoms have been going on for the last 3 days. Related Data Allergies Allergy/AdvReac Type Severity Reaction Status Date / Time No Known Allergies Allergy Verified 05/25/24 14:06 Review of Systems Review of Systems: All systems reviewed & are unremarkable except as noted in HPI and below PMFSH Past Medical History Medical History Anxiety and depression Bipolar 1 disorder Schizophrenia Social History Social History Substance use: never Substance use type: does not use Gender identity (if verbalized by the patient): Female Sexual Orientation (if Verbalized by the Patient): Straight or Heterosexual Exam Narrative: APPEARANCE: Well appearing, no pain, no distress, well-nourished. HEAD: normocephalic, atraumatic. EYES: PERRLA/EOMI, conjunctivae clear. NOSE: Normal no drainage EARS:TMS clear with good light reflex. THROAT: Pharynx clear, no exudate. NECK: Supple. No adenopathy, no masses. RESPIRATORY: Airway patent, respirations nonlabored. Clear to auscultation bilaterally, no rales, rhonchi, wheezing. CARDIOVASCULAR: Regular rate and rhythm without murmurs rubs or gallops. ABDOMINAL: Soft, nontender, nondistended, normal bowel sounds MUSCULOSKELETAL: Moves all extremities. Strength/ROM intact, No edema, No calf tenderness. NEURO: Alert. Cranial nerves II through XII intact. Good gait. Good coordination SKIN: Warm, dry. Normal Color Course Vital Signs Vital signs: Vital Signs Temperature 97.8 F 05/25/24 14:24 Pulse Rate 77 05/25/24 14:24 Respiratory Rate 18 05/25/24 14:24 Blood Pressure 139/80 05/25/24 14:24 Pulse Oximetry 100 05/25/24 14:24 Oxygen Delivery Room Air 05/25/24 14:24 Temperature 97.8 F 05/25/24 14:24 Pulse Rate 77 05/25/24 14:24 Respiratory Rate 18 05/25/24 14:24 Blood Pressure 139/80 05/25/24 14:24 Pulse Oximetry 100 05/25/24 14:24 Oxygen Delivery Room Air 05/25/24 14:24 Medical Decision Making MDM Narrative Medical decision making narrative: 28-year-old female presents emergency department for evaluation for cough congestion body aches fatigue. Patient did test positive for influenza A. Chest x-ray showed no acute focal pneumonia. Differential Diagnosis Differential Diagnosis: COVID, RSV, influenza, pneumonia Vital Signs Vital Signs: Vital Signs Temperature 97.8 F 05/25/24 14:24 Pulse Rate 77 05/25/24 14:24 Respiratory Rate 18 05/25/24 14:24 Blood Pressure 139/80 05/25/24 14:24 Pulse Oximetry 100 05/25/24 14:24 Oxygen Delivery Room Air 05/25/24 14:24 Temperature 97.8 F 05/25/24 14:24 Pulse Rate 77 05/25/24 14:24 Respiratory Rate 18 05/25/24 14:24 Blood Pressure 139/80 05/25/24 14:24 Pulse Oximetry 100 05/25/24 14:24 Oxygen Delivery Room Air 05/25/24 14:24 Lab Data Lab results reviewed: Yes I reviewed the patient's lab results. Labs: Lab Results 05/25/24 Range/Units 14:59 Influenza A (RT-PCR) Positive A (Negative) Influenza B (RT-PCR) Negative (Negative) RSV (RT-PCR) Negative (Negative) SARS-CoV-2 RNA (RT-PCR) Negative (Negative) Discharge Plan Discharge Clinical Impression: Influenza A Patient Disposition: Home, Self-Care Condition: Stable Instructions: Antibiotic Form, Influenza (ED) Additional Instructions: Tylenol and ibuprofen for pain control. Albuterol inhaler for shortness of breath and Tessalon Perles for cough. Have close follow-up with your primary care physician. Patient Language: Brazilian Prescriptions: New benzonatate 100 mg capsule 100 mg PO TID PRN (Reason: cough) Qty: 14 0RF albuterol sulfate 90 mcg/actuation HFA aerosol inhaler 1 puff inhalation QID Qty: 6.7 0RF Follow-up/Referrals: Julio Hawley MD [Primary Care Provider] - Stand Alone Forms: Work/School Release IP
== END 2024-05-25 16:27 | disposition home or self-care (01) ==
PROVIDERS: Emergency Provider Emergency Medicine; PCP Emergency Medicine
DX: J10.1 Influenza due to other identified influenza virus with other respiratory manifestations (principal); Z20.822 Contact with and (suspected) exposure to COVID-19
CPT/HCPCS: 71045; 87637; 99283